=== PATIENT | male | born 1985 | race Caucasian/White ===

== ENCOUNTER 2016-10-07 11:42 | Emergency (ER) | payer BC, OTHER ==
[2016-10-07] MEDS ORDERED: TORAdol 30 mg Injection IM ONE (12:16)
[2016-10-07] MEDS ORDERED: DECADRON 10MG INJ. IM ONE (12:17)
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
[2016-10-07] MEDS ORDERED: TORAdol 30 mg Injection ONE (12:28)
[2016-10-07] MEDS ORDERED: DECADRON 10MG INJ. ONE (12:29)
[2016-10-07 12:57] VITALS: BP 128/60; PULSE 76; O2SAT 100
== END 2016-10-07 12:56 | disposition home or self-care (01) ==
LOC: ED 11:42
DX: M62.830 Muscle spasm of back (principal); X50.0XXA Overexertion from strenuous movement or load, initial encounter
CPT/HCPCS: 96372; 99282; 99284; J1100; J1885

== ENCOUNTER 2020-04-05 10:25 | Day surgery (SDC) | payer OTHER ==
[2012-10-29 16:57] VITALS: BP 142/90
[2020-04-05] MEDS ORDERED: Depo-Medrol 40 MG/ML IM ONE (10:26)
[2020-04-05] MEDS ORDERED: Xylocaine 1% Vial 30 ML PF IJ ONE (10:26)
[2020-04-05] MEDS ORDERED: BUPIVACAINE 0.5% VIAL IJ ONE (10:26)
--- NOTE | 2020-04-05 14:58 | XRAY ---
Indication: Left shoulder injection. Intraoperative fluoroscopy provided for 29 seconds. 3 digital spot images submitted for interpretation demonstrates needle tip projecting over the left glenohumeral joint superiorly. Small amount of contrast injected for needle tip placement. Correlate with intraoperative findings/report.
--- NOTE | 2020-04-05 15:09 | XRAY ---
29 seconds fluoroscopy in surgery for intra-articular and subachromial injections of the left shoulder.
== END 2020-04-05 12:33 | disposition home or self-care (01) ==
LOC: SDC-PAIN 10:25
PROVIDERS: ATTEND Psychiatry & Neurology Pain Medicine
DX: M19.012 Primary osteoarthritis, left shoulder (principal); M75.52 Bursitis of left shoulder; K21.9 Gastro-esophageal reflux disease without esophagitis; G47.419 Narcolepsy without cataplexy; Z79.899 Other long term (current) drug therapy
CPT/HCPCS: 20610; 73030; 77002; J1030; J2001; Q9966

== ENCOUNTER 2020-11-15 16:17 | Day surgery (SDC) | payer OTHER ==
[2012-10-29 16:57] VITALS: BP 142/90
[2020-11-15] MEDS ORDERED: Xylocaine 1% Vial 30 ML PF IJ ONE (16:18)
[2020-11-15] MEDS ORDERED: BUPIVACAINE 0.5% VIAL IJ ONE (16:18)
[2020-11-15] MEDS ORDERED: Depo-Medrol 40 MG/ML IM ONE (16:18)
--- NOTE | 2020-11-16 11:21 | XRAY ---
35 seconds fluoroscopy time in surgery for intra-articular and subachromial injections of the left shoulder.
--- NOTE | 2020-11-18 23:21 | XRAY ---
Indication: Left shoulder intra-articular injection and left subacromial bursa injection from 11/15/2020. Intraoperative fluoroscopy was provided for 35 seconds. 3 digital spot images submitted for interpretation demonstrate a needle tip overlying the superior medial margin of the left humeral head. Some contrast has been injected for needle tip placement. Another needle tip is seen projected superior to the mid aspect of the left humeral head at the level of the subacromial bursa. A small amount of contrast has been injected for needle tip placement. Correlate with intraoperative findings/report.
== END 2020-11-15 17:18 | disposition home or self-care (01) ==
LOC: SDC-PAIN 16:17
PROVIDERS: ATTEND Psychiatry & Neurology Pain Medicine
DX: M19.012 Primary osteoarthritis, left shoulder (principal); M75.52 Bursitis of left shoulder; Z79.899 Other long term (current) drug therapy
CPT/HCPCS: 20610; 73030; 77002; J1030; J2001; Q9966

== ENCOUNTER 2021-01-05 09:16 | Day surgery (SDC) | payer OTHER ==
[2012-10-29 16:57] VITALS: BP 142/90
[2021-01-05] MEDS ORDERED: Depo-Medrol 40 MG/ML IM ONE (09:17)
[2021-01-05] MEDS ORDERED: LIDOCAINE HCL 2% 100 MG/5 ML IJ ONE (09:17)
[2021-01-05] MEDS ORDERED: DIPRIVAN 200 MG/20 ML IV ONE (10:41)
[2021-01-05] MEDS ORDERED: Lactated Ringers 1,000 ML IV ONE (10:55)
--- NOTE | 2021-01-05 11:36 | XRAY ---
Indication: Bilateral L4-S1 MBB. Intraoperative fluoroscopy provided for 12 seconds. Single digital spot image submitted for interpretation demonstrates posterior needle tips projecting over the expected left and right L4-S1 nerve roots. Correlate with intraoperative findings/report.
--- NOTE | 2021-01-05 12:23 | XRAY ---
12 seconds fluoroscopy time in surgery for bilateral L4-S1 MBB.
== END 2021-01-05 10:49 | disposition home or self-care (01) ==
LOC: SDC-PAIN 09:16
PROVIDERS: ATTEND Psychiatry & Neurology Pain Medicine
DX: M47.816 Spondylosis without myelopathy or radiculopathy, lumbar region (principal); K21.9 Gastro-esophageal reflux disease without esophagitis; Z79.899 Other long term (current) drug therapy
CPT/HCPCS: 64493; 64494; 72020; 77002; J1030; J2704

== ENCOUNTER 2021-02-14 08:31 | Day surgery (SDC) | payer OTHER ==
[2012-10-29 16:57] VITALS: BP 142/90
[2021-02-14] MEDS ORDERED: Depo-Medrol 40 MG/ML IM ONE (08:32)
[2021-02-14] MEDS ORDERED: DIPRIVAN 200 MG/20 ML IV ONE (08:32)
[2021-02-14] MEDS ORDERED: BUPIVACAINE 0.5% VIAL IJ ONE (08:32)
[2021-02-14] MEDS ORDERED: Lactated Ringers 1,000 ML IV ONE (09:35)
--- NOTE | 2021-02-14 10:06 | XRAY ---
Indication: Bilateral L4-S1 MBB. Intraoperative fluoroscopy provided for 15 seconds. Single digital spot image submitted for interpretation demonstrates posterior needle tips projecting over the expected left and right L4-S1 nerve roots. Correlate with intraoperative findings/report.
--- NOTE | 2021-02-14 10:43 | XRAY ---
15 seconds of fluoroscopy was used in surgery for a bilateral L4-S1 MBB.
== END 2021-02-14 09:40 | disposition home or self-care (01) ==
LOC: SDC-PAIN 08:31
PROVIDERS: ATTEND Psychiatry & Neurology Pain Medicine
DX: M47.816 Spondylosis without myelopathy or radiculopathy, lumbar region (principal)
CPT/HCPCS: 64493; 64494; 72020; 77002; J1030; J2704

== ENCOUNTER 2021-03-28 13:00 | Day surgery (SDC) | payer OTHER ==
[2012-10-29 16:57] VITALS: BP 142/90
[2021-03-28] MEDS ORDERED: BUPIVACAINE 0.5% VIAL IJ ONE (13:01)
[2021-03-28] MEDS ORDERED: Depo-Medrol 40 MG/ML IJ ONE (13:01)
[2021-03-28] MEDS ORDERED: Xylocaine 1% Vial 30 ML PF IJ ONE (13:01)
[2021-03-28] MEDS ORDERED: Lactated Ringers 1,000 ML IV ONE (14:54)
[2021-03-28] MEDS ORDERED: DIPRIVAN 200 MG/20 ML IV ONE (15:11)
--- NOTE | 2021-03-28 16:13 | XRAY ---
Indication: Left L4-S1 RFA. Intraoperative fluoroscopy provided for 17 seconds. 3 digital spot image submitted for interpretation demonstrates posterior needle tips projecting over the expected left L4-S1 nerve roots. Correlate with intraoperative findings/report.
--- NOTE | 2021-03-28 16:21 | XRAY ---
17 seconds fluoroscopy time in surgery for right L4-S1 RFA.
== END 2021-03-28 15:37 | disposition home or self-care (01) ==
LOC: SDC-PAIN 13:00
PROVIDERS: ATTEND Psychiatry & Neurology Pain Medicine
DX: M47.816 Spondylosis without myelopathy or radiculopathy, lumbar region (principal); Z79.899 Other long term (current) drug therapy
CPT/HCPCS: 64635; 64636; 72100; 77002; J1030; J2001; J2704

== ENCOUNTER 2021-04-04 14:03 | Day surgery (SDC) | payer OTHER ==
[2012-10-29 16:57] VITALS: BP 142/90
[2021-04-04] MEDS ORDERED: Depo-Medrol 40 MG/ML IM ONE (14:04)
[2021-04-04] MEDS ORDERED: BUPIVACAINE 0.5% VIAL IJ ONE (14:04)
[2021-04-04] MEDS ORDERED: Xylocaine 1% Vial 30 ML PF IJ ONE (14:04)
[2021-04-04] MEDS ORDERED: Lactated Ringers 1,000 ML IV ONE (16:23)
[2021-04-04] MEDS ORDERED: DIPRIVAN 200 MG/20 ML IV ONE (16:59)
--- NOTE | 2021-04-04 18:56 | XRAY ---
Indication: Right L4-S1 RFA. Intraoperative fluoroscopy provided for 20 seconds. 4 digital spot image submitted for interpretation demonstrates posterior needle tips projecting over the expected right L4-S1 nerve roots. Correlate with intraoperative findings/report.
--- NOTE | 2021-04-04 19:10 | XRAY ---
20 seconds of fluoroscopy was used in surgery for a right L4-S1 RFA.
== END 2021-04-04 17:30 | disposition home or self-care (01) ==
LOC: SDC-PAIN 14:03
PROVIDERS: ATTEND Psychiatry & Neurology Pain Medicine
DX: M47.816 Spondylosis without myelopathy or radiculopathy, lumbar region (principal); Z79.899 Other long term (current) drug therapy
CPT/HCPCS: 64635; 64636; 72100; 77002; J1030; J2001; J2704

== ENCOUNTER 2022-08-28 11:39 | Day surgery (SDC) | payer OTHER ==
[2012-10-29 16:57] VITALS: BP 142/90
[2022-08-28] MEDS ORDERED: BUPIVACAINE 0.5% VIAL IJ ONE (11:40)
[2022-08-28] MEDS ORDERED: XYLOCAINE 1% HCL 20 ML MDV IJ ONE (11:40)
[2022-08-28] MEDS ORDERED: Depo-Medrol 40 MG/ML IM ONE (11:40)
--- NOTE | 2022-08-28 17:00 | XRAY ---
Indication: Bilateral SI joint injection. Intraoperative fluoroscopy provided for 23 seconds. 4 digital spot image submitted for interpretation demonstrates posterior needle tip projecting over the expected left and right SI joint. Correlate with intraoperative findings/report.
--- NOTE | 2022-08-28 17:12 | XRAY ---
23 seconds of fluoroscopy was used in surgery for a bilateral sacroiliac joint injection.
== END 2022-08-28 15:15 | disposition home or self-care (01) ==
LOC: SDC-PAIN 11:39
PROVIDERS: ATTEND Psychiatry & Neurology Pain Medicine
DX: M46.1 Sacroiliitis, not elsewhere classified (principal); Z79.899 Other long term (current) drug therapy
CPT/HCPCS: 27096; 72202; 77002; J1030; G0260